=== PATIENT | female | born 1935 | race Hispanic/Latino ===

== ENCOUNTER 2018-01-01 19:49 | Emergency (ER) | payer MEDICARE, MEDICAID ==
[2018-01-01 19:50] VITALS: BMI 32.6
[2018-01-01 20:03] VITALS: RESP 20; TEMP 98.5
[2018-01-01] MEDS ORDERED: Sodium Chloride 0.9% 1,000 ML IV ONE (20:29)
[2018-01-01] MEDS ORDERED: Sodium Chloride 0.9% 1,000 ML ONE (20:47)
[2018-01-01 20:49] LABS: BASO # 0.1 K/uL (0.0-0.2); BASO % 0.9 % (0.0-2.0); EOS # 0.2 K/uL (0.0-0.7); EOS % 2.8 % (0.0-4.0); HEMOGLOBIN 12.4 g/dL (11.0-16.0); LYMPH % 30.3 % (20.0-40.0); MEAN CELL VOLUME 88.9 fL (81.0-99.0); MEAN CORPUSCULAR HEMOGLOBIN 29.4 pg (27.0-31.0); MEAN CORPUSCULAR HGB CONC 33.1 g/dL (33.0-37.0); MEAN PLATELET VOLUME 8.4 fL (7.2-11.7); MONO # 0.6 K/uL (0.0-0.8); MONO % 8.7 % (0.0-10.0); NEUT # 3.9 K/uL (1.8-7.0); NEUT % 57.3 % (50.0-75.0); NRBC % 0.1 % (0.0-2.0); RBC 4.23 Mil/uL (3.80-5.20); RED CELL DISTRIBUTION WIDTH 14.4 % (11.5-14.5); WHITE BLOOD COUNT 6.7 K/uL (4.8-10.8)
[2018-01-01 21:03] LABS: ALBUMIN 3.6 g/dL (3.5-5.0); ALT/SGPT 16 U/L (9-52); AST/SGOT 23 U/L (14-36); BLOOD UREA NITROGEN 9 mg/dL (7-17); CALCIUM 9.1 mg/dl (8.6-10.4); GFR AFRICAN-AMERICAN 58; GFR NON-AFRICAN AMERICAN 48
[2018-01-01 21:13] LABS: B-TYPE NATRIURETIC PEPTIDE 770 pg/mL (0-900)
[2018-01-01 21:37] LABS: SQUAMOUS EPITHIAL 117 /hpf (0-5); URINE BACTERIA FEW (<OCC); URINE BILIRUBIN NEGATIVE (NEGATIVE); URINE BLOOD NEGATIVE (NEGATIVE); URINE CLARITY Turbid (Clear); URINE COLOR Amber (YELLOW); URINE GLUCOSE (UA) NORMAL (Normal); URINE LEUKOCYTE ESTERASE 1+ Leu/uL (Negative); URINE PROTEIN 2+ mg/dL (NEGATIVE); URINE UROBILINOGEN NORMAL mg/dL (0.2-1.0)
--- NOTE | 2018-01-01 21:56 | C.PDOC ---
History Of Present Illness <Az Zepeda - Last Filed: 01/02/18 00:02> <Bernadine Ford - Last Filed: 01/02/18 13:14> 82 year old female presents to the ED for evaluation of nausea and vomiting which began this morning. Patient staets she felt dizzy and then went back to bed. She is unclear of what happened afterwards. (DuaneAzNicola) History Per: Patient History/Exam Limitations: no limitations Onset/Duration Of Symptoms: Hrs Current Symptoms Are (Timing): Still Present Radiation Of Pain To:: None Quality Of Discomfort: Unable To Describe Additional History Per: Patient <Az Zepeda - Last Filed: 01/02/18 00:02> <Bernadine Ford - Last Filed: 01/02/18 13:14> Time Seen by Provider: 01/01/18 20:21 Chief Complaint (Nursing): Abdominal Pain Past Medical History Reviewed: Historical Data, Nursing Documentation, Vital Signs - Medical History PMH: Alzheimer's Disease, Asthma, CHF, COPD, Dementia, Depression, HTN, Hypothyroidism, Peripheral Edema (lle +1 pitting), Pneumonia, TIA Denies: Arthritis, Hypercholesterolemia, Chronic Kidney Disease, Rheumatoid Arthritis Surgical History: No Surg Hx Family History: States: Unknown Family Hx - Social History Hx Tobacco Use: No Hx Alcohol Use: No Hx Substance Use: No - Immunization History Hx Tetanus Toxoid Vaccination: No Hx Influenza Vaccination: No (unknown) Hx Pneumococcal Vaccination: No <Az Zepeda - Last Filed: 01/02/18 00:02> Vital Signs: Last Vital Signs Temp 98.5 F 01/01/18 20:01 Pulse 60 01/01/18 22:11 Resp 20 01/01/18 22:11 BP 189/80 H 01/01/18 22:11 Pulse Ox 97 01/02/18 00:27 - [facility] Procedures ASSISTANCE WITH RESPIRATORY VENTILATION, <24 HRS, CPAP (07/19/15) DESTRUCTION OF SIGMOID COLON, ENDO (07/10/15) EXCISION OF STOMACH, PYLORUS, ENDO, DIAGN (07/10/15) INSERTION OF INFUSION DEV INTO SUP VENA CAVA, PERC APPROACH (07/10/15) RESPIRATORY VENTILATION, LESS THAN 24 CONSECUTIVE HOURS (08/03/16) VACCINATION NEC (03/05/14) Review Of Systems Constitutional: Negative for: Fever, Chills Gastrointestinal: Positive for: Nausea, Vomiting Neurological: Positive for: Dizziness <Az Zepeda - Last Filed: 01/02/18 00:02> Physical Exam - Physical Exam Appears: Non-toxic, No Acute Distress, Other (obese white female) Skin: Normal Color, Warm, Dry Head: Atraumatic, Normacephalic Eye(s): bilateral: Normal Inspection Oral Mucosa: Moist Neck: Supple Chest: Symmetrical, No Deformity, No Tenderness Cardiovascular: Rhythm Regular, No Murmur Respiratory: Normal Breath Sounds, No Rales, No Rhonchi, No Wheezing Gastrointestinal/Abdominal: Soft, No Tenderness, No Guarding, No Rebound Extremity: Normal ROM, Capillary Refill (less than 2 seconds) Neurological/Psych: Oriented x3, Normal Speech, Normal Cognition <Az Zepeda - Last Filed: 01/02/18 00:02> ED Course And Treatment - Laboratory Results Result Diagrams: 01/01/18 20:42 01/01/18 20:42 Lab Interpretation: Normal (UA wnl) ECG: Interpreted By Me ECG Rhythm: Sinus Rhythm ECG Interpretation: Normal Rate From EC O2 Sat by Pulse Oximetry: 97 (on RA ) Pulse Ox Interpretation: Normal - Radiology CXR: Interpreted by Me CXR Interpretation: Yes: No Acute Disease - Other Rad abd x 2 X-Ray: Interpreted by Pr (normal stool/gas) Progress Note: protonix, IVF Reevaluation Time: 21:57 Reassessment Condition: Improved (daughter now @ bedside, claims pt was nauseated by a foul smell at home which may have provoked her nausea/vomiting. now resolved.) <Az Zepeda - Last Filed: 01/02/18 00:02> - Laboratory Results Result Diagrams: 01/01/18 20:42 01/01/18 20:42 <Bernadine Ford - Last Filed: 01/02/18 13:14> Disposition Doctor Will See Patient In The: Office Counseled Patient/Family Regarding: Studies Performed, Diagnosis - Disposition Disposition Time: 21:58 <Az Zepeda - Last Filed: 01/02/18 00:02> <Bernadine Ford - Last Filed: 01/02/18 13:14> - Disposition Referrals: [facility] [Outside] [facility] [Outside] Disposition: HOME/ ROUTINE Condition: GOOD Additional Instructions: bland diet for 1 day ED workup normal today Instructions: Nausea and Vomiting, Adult (DC) Forms: [facility] (Azeri) - Clinical Impression Clinical Impression: Nausea & vomiting - Scribe Statement The provider has reviewed the documentation as recorded by the Scribe (Rosalva Rasheed) <Az Zepeda - Last Filed: 01/02/18 00:02> <Bernadine Ford - Last Filed: 01/02/18 13:14> - Scribe Statement Provider Attestation: All medical record entries made by the Scribe were at my direction and personally dictated by me. I have reviewed the chart and agree that the record accurately reflects my personal performance of the history, physical exam, medical decision making, and the department course for this patient. I have also personally directed, reviewed, and agree with the discharge instructions and disposition. (Az Zepeda) Addendum <Az Zepeda - Last Filed: 01/02/18 00:02> <Bernadine Ford - Last Filed: 01/02/18 13:14> Addendum: 01/02/18 13:11 Attempted to call patient to inform of the final xray report that shows moderate fecal retention. The phone number [phone] is not a valid number, no other phone numbers provided. (Bernadine Ford)
[2018-01-01 22:06] LABS: BARBITURATES, UR NEGATIVE (NEGATIVE); BENZODIAZEPINES, UR NEGATIVE (NEGATIVE); OPIATES, UR NEGATIVE (NEGATIVE); PHENCYCLIDINE, UR NEGATIVE (NEGATIVE)
[2018-01-01 22:12] VITALS: BP 189/80; PULSE 60
[2018-01-01 23:52] VITALS: O2SAT 97
--- NOTE | 2018-01-02 08:26 | RAD ---
Abdomen five views History: Nausea vomiting. Comparison: None available. Findings: Diffuse increased interstitial lung markings. Biapical pleural thickening with upper lobe granulomatous changes. Tortuous ectatic aorta. Calcification at the aortic knob. Mild cardiomegaly. Degenerative changes in the spine and shoulders. Blunted left costophrenic angle. Moderate fecal retention in the colon. Degenerative changes in the spine and bilateral hips. Calcified phleboliths in the pelvis. Impression: Moderate fecal retention in the colon.
== END 2018-01-01 22:12 | disposition home or self-care (01) ==
LOC: C.ER 19:49
DX: R11.2 Nausea with vomiting, unspecified (principal); E03.9 Hypothyroidism, unspecified; F02.80 Dementia in other diseases classified elsewhere, unspecified severity, without behavioral disturbance, psychotic disturbance, mood disturbance, and anxiety; G30.9 Alzheimer's disease, unspecified; I50.9 Heart failure, unspecified; I10 Essential (primary) hypertension
CPT/HCPCS: 74022; 80053; 80320; 80324; 80345; 80346; 80349; 80353; 80358; 80361; 81001; 83880; 83992; 84484; 85025; 96361; 96374; 99284; C9113; J7040

== ENCOUNTER 2018-05-22 00:14 | Emergency (ER) | payer OTHER ==
[2018-05-22 00:15] VITALS: BMI 32.6
--- NOTE | 2018-05-22 01:01 | C.PDOC ---
History Of Present Illness Patient BIBA for evaluation of multiple episodes of nausea/vomiting today. Daughter states the vomit looks like "clear mucus", and started after the patient smelled a foul odor coming from their sink (they recently moved into a new apartment). Patient denies cough, fever, abdominal pain, diarrhea, dysuria. PMhx of COPD/asthma, CHF, HTN, hypothyroidism, pneumonia, TIA Time Seen by Provider: 05/22/18 00:22 Chief Complaint (Nursing): GI Problem History Per: Patient, Family Current Symptoms Are (Timing): Better Severity: Mild Associated Symptoms: Nausea, Vomiting. denies: Fever, Chills, Diarrhea, Urinary Symptoms Past Medical History Reviewed: Historical Data, Nursing Documentation, Vital Signs Vital Signs: Last Vital Signs Temp 98.5 F 05/22/18 00:26 Pulse 72 05/22/18 00:26 Resp 18 05/22/18 00:26 BP 180/100 H 05/22/18 00:26 Pulse Ox 97 05/22/18 00:26 - Medical History PMH: Alzheimer's Disease, Asthma, CHF, COPD, Dementia, Depression, HTN, Hypothyroidism, Peripheral Edema (lle +1 pitting), Pneumonia, TIA - [facility] Procedures ASSISTANCE WITH RESPIRATORY VENTILATION, <24 HRS, CPAP (07/19/15) DESTRUCTION OF SIGMOID COLON, ENDO (07/10/15) EXCISION OF STOMACH, PYLORUS, ENDO, DIAGN (07/10/15) INSERTION OF INFUSION DEV INTO SUP VENA CAVA, PERC APPROACH (07/10/15) RESPIRATORY VENTILATION, LESS THAN 24 CONSECUTIVE HOURS (08/03/16) VACCINATION NEC (03/05/14) Family History: States: No Known Family Hx - Social History Hx Tobacco Use: No Hx Alcohol Use: No Hx Substance Use: No - Immunization History Hx Tetanus Toxoid Vaccination: No Hx Influenza Vaccination: No (unknown) Hx Pneumococcal Vaccination: No Review Of Systems Constitutional: Negative for: Fever, Chills Cardiovascular: Negative for: Chest Pain, Palpitations Respiratory: Negative for: Cough, Shortness of Breath Gastrointestinal: Positive for: Nausea, Vomiting Genitourinary: Negative for: Dysuria, Hematuria Skin: Negative for: Rash Physical Exam - Physical Exam Appears: Well, Non-toxic, No Acute Distress Head: Atraumatic, Normacephalic Eye(s): bilateral: Normal Inspection Cardiovascular: Rhythm Regular Respiratory: Normal Breath Sounds, No Rales, No Rhonchi, No Wheezing, Other (coughing up clear mucus ) Gastrointestinal/Abdominal: Normal Exam, Bowel Sounds, Soft, No Tenderness, Other (obese) Neurological/Psych: Oriented x3 ED Course And Treatment O2 Sat by Pulse Oximetry: 97 (RA) Pulse Ox Interpretation: Normal Progress Note: Blood work, CXR, EKG ordered. Disposition - Disposition Referrals: Luiz Laura MD [Primary Care Provider] - Disposition Time: 01:05 Condition: STABLE - Clinical Impression Clinical Impression: Nausea & vomiting Physician Patient Turnover Patient Signed Over To: Nicole Lima Handoff Comments: pending labs, cxr, ekg, reassessment
[2018-05-22] MEDS ORDERED: Sodium Chloride 0.9% 500 ML IV ONE ×2 (01:03→01:14)
[2018-05-22 01:23] LABS: BASO % 0.4 % (0.0-2.0); EOS % 0.4 % (0.0-4.0); HEMOGLOBIN 12.5 g/dL (11.0-16.0); LYMPH # 1.1 K/uL (1.0-4.3); LYMPH % 9.6 % (20.0-40.0); MEAN CELL VOLUME 90.2 fL (81.0-99.0); MEAN CORPUSCULAR HEMOGLOBIN 29.4 pg (27.0-31.0); MEAN CORPUSCULAR HGB CONC 32.6 g/dL (33.0-37.0); MEAN PLATELET VOLUME 8.3 fL (7.2-11.7); MONO # 0.7 K/uL (0.0-0.8); MONO % 5.9 % (0.0-10.0); NEUT # 9.7 K/uL (1.8-7.0); NEUT % 83.7 % (50.0-75.0); NRBC % 0.1 % (0.0-2.0); PLATELET COUNT 289 K/uL (130-400); RBC 4.25 Mil/uL (3.80-5.20); RED CELL DISTRIBUTION WIDTH 14.1 % (11.5-14.5); WHITE BLOOD COUNT 11.6 K/uL (4.8-10.8)
[2018-05-22 01:40] LABS: CALCIUM 9.5 mg/dl (8.6-10.4)
[2018-05-22 01:41] LABS: ALB/GLOB RATIO 1.1 (1.0-2.1)
[2018-05-22 02:24] LABS: LYMPHOCYTE 12 % (20-40); MONOCYTE 6 % (0-10); NEUTROPHIL 82 % (50-75); PLATELET ESTIMATE NORMAL (NORMAL); TOTAL CELLS COUNTED 100
[2018-05-22 03:18] LABS: SQUAMOUS EPITHIAL 5 /hpf (0-5); URINE BACTERIA MANY (<OCC); URINE BILIRUBIN NEGATIVE (NEGATIVE); URINE CLARITY Hazy (Clear); URINE COLOR Yellow (YELLOW); URINE GLUCOSE (UA) NORMAL (Normal); URINE LEUKOCYTE ESTERASE 1+ Leu/uL (Negative); URINE PROTEIN 2+ mg/dL (NEGATIVE); URINE UROBILINOGEN NORMAL mg/dL (0.2-1.0)
[2018-05-22 03:19] LABS: URINE BLOOD NEGATIVE (NEGATIVE)
[2018-05-22 04:24] VITALS: BP 160/98; PULSE 74; RESP 20; TEMP 98.6; O2SAT 96
--- NOTE | 2018-05-22 08:37 | RAD ---
Date of service: 05/22/2018 PROCEDURE: CHEST RADIOGRAPH, 1 VIEW HISTORY: Cough COMPARISON: 01/01/2018. FINDINGS: LUNGS: The lungs are well inflated and clear. There is mild pulmonary venous congestion. PLEURA: No pneumothorax or pleural fluid seen. CARDIOVASCULAR: Persistent mild cardiomegaly. OSSEOUS STRUCTURES: No significant abnormalities. VISUALIZED UPPER ABDOMEN: Normal. OTHER FINDINGS: None. IMPRESSION: No active pulmonary disease. Mild cardiomegaly and pulmonary venous congestion.
--- NOTE | 2018-05-25 11:02 | CARD ---
APPROVED REPORT Date of service: 05/22/2018 EKG Measurement Heart [id number] <Conclusion> Normal sinus rhythm Minimal voltage criteria for LVH, may be normal variant T wave abnormality, consider inferior ischemia Abnormal ECG
== END 2018-05-22 04:21 | disposition home or self-care (01) ==
LOC: SUPCPDRO 00:14 → C.ER 00:14
DX: N39.0 Urinary tract infection, site not specified (principal); R11.2 Nausea with vomiting, unspecified; I11.0 Hypertensive heart disease with heart failure; I50.9 Heart failure, unspecified; Z86.73 Personal history of transient ischemic attack (TIA), and cerebral infarction without residual deficits; Z87.891 Personal history of nicotine dependence
CPT/HCPCS: 71045; 80053; 81001; 82948; 83690; 85025; 93005; 99283; J7040